=== PATIENT | female | born 1965 | race Caucasian/White ===

== ENCOUNTER 2019-01-28 00:57 | Observation (INO) | payer BC ==
[~2019-01-28] VITALS: Ht 180.3 cm; Wt 90.7 kg
[2019-01-28] MEDS ORDERED: SODIUM CHLORIDE 0.9% 1000ML 1,000 ML IV STA (01:28)
[2019-01-28] MEDS ORDERED: MORPHINE SULFATE INJ 4 MG/ML INJ 1ML IV STA (01:28)
[2019-01-28] MEDS ORDERED: ONDANSETRON HCL INJ 2MG/ML 2ML 2 MG/ML VIAL IV STA (01:28)
[2019-01-28] MEDS ORDERED: GLUCAGON FOR INJ 1 MG VIAL IV ONE ×2 (01:30→03:15)
[2019-01-28 01:53] LABS: BASOPHILS # (AUTO) 0.1 (0.0-0.1); BASOPHILS % 0.8 % (0.0-1.0); EOSINOPHILS # (AUTO) 0.4 (0.0-0.4); EOSINOPHILS % 4.8 % (0.0-6.0); HEMATOCRIT 42.5 % (34.2-44.1); HEMOGLOBIN 14.5 g/dL (12.0-16.0); LYMPHOCYTES # (AUTO) 2.3 (1.0-3.2); LYMPHOCYTES % 27.3 % (18.0-39.1); MEAN CORPUSCULAR HEMOGLOBIN 31.5 pg (28-32); MEAN CORPUSCULAR HGB CONC 34.1 g/dL (31-35); MEAN CORPUSCULAR VOLUME 92.2 fL (81-99); MONOCYTES # (AUTO) 0.5 (0.2-0.8); MONOCYTES % 5.9 % (4.4-11.3); NEUTROPHILS # (AUTO) 5.2 (2.1-6.9); NEUTROPHILS % 60.8 % (38.7-80.0); PLATELET COUNT 243 x10e3/uL (140-360); RED BLOOD COUNT 4.61 x10e6/uL (3.6-5.1); RED CELL DISTRIBUTION WIDTH 12.7 % (11.7-14.4)
[2019-01-28 01:56] LABS: CLARITY,URINE CLOUDY (CLEAR); COLOR,URINE YELLOW (YELLOW); KETONES,URINE TRACE (NEGATIVE); LEUKOCYTE ESTERASE ,URINE NEGATIVE (NEGATIVE); NITRITE,URINE NEGATIVE (NEGATIVE); PROTEIN,URINE DIPSTICK 1+ (NEGATIVE)
[2019-01-28 01:57] LABS: BILIRUBIN,URINE 2+ (NEGATIVE); URINE UROBILINOGEN 0.2 mg/dL (0.2 - 1)
[2019-01-28 02:12] LABS: BACTERIA,URINE MODERATE /HPF; EPITHELIAL CELLS,URINE MODERATE /LPF; MUCUS,URINE MODERATE (RARE); RBC,URINE 0-5 /HPF (0-5)
[2019-01-28 02:21] LABS: INR 0.93; PARTIAL THROMBOPLASTIN TIME 30.1 seconds (23.8-35.5)
--- NOTE | 2019-01-28 02:24 | Diagnostic Imaging Report ---
EXAMINATION: CT scan of the chest without contrast. TECHNIQUE: Helical CT images of the chest were performed from the lung apices to the level of the adrenal glands. No intravenous contrast was administered Coronal and sagittal reformatted images were obtained.Dose modulation, iterative reconstruction, and/or weight based adjustment of the mA/kV was utilized to reduce the radiation dose to as low as reasonably achievable. COMPARISON: None. CLINICAL HISTORY:Chest pain, esophageal foreign body. DISCUSSION: ABSENCE OF INTRAVENOUS CONTRAST DECREASES SENSITIVITY FOR DETECTION OF FOCAL LESIONS AND VASCULAR PATHOLOGY. LINES/TUBES: None. LUNGS AND AIRWAYS: The lungs are clear. No pulmonary nodules, masses or consolidation. The airways are normal, without endobronchial lesions. PLEURA: No pneumothorax or pleural effusions. HEART AND MEDIASTINUM: The thyroid gland is normal. The heart and pericardium are within normal limits. Esophagus is partially filled with fluid and dilated. At the gastroesophageal junction soft tissue density approximately 1.6 cm visualized. LYMPH NODES: There is no mediastinal, hilar or axillary lymphadenopathy. ABDOMEN: Limited contrast-enhanced views of the upper abdomen show no abnormality within the visualized liver, spleen, pancreas, or kidneys. The adrenal glands are normal. BONES AND SOFT TISSUES: No acute bony abnormalities. IMPRESSION: Dilated partially fluid-filled esophagus with foreign body/obstructing lesion at the gastroesophageal junction Signed by: Dr. Zay Gray M.D. on 01/28/2019 2:20 AM
[2019-01-28 02:31] LABS: ALANINE AMINOTRANSFERASE 15 IU/L (0-55); ALBUMIN 4.3 g/dL (3.5-5.0); ALBUMIN/GLOBULIN RATIO 1.2 (0.8-2.0); ALKALINE PHOSPHATASE 87 IU/L (40-150); ANION GAP 15.9 mmol/L (8-16); BLOOD UREA NITROGEN 12 mg/dL (7-26); BUN/CREATININE RATIO 18 (6-25); CARBON DIOXIDE 27 mmol/L (22-29); CHLORIDE 102 mmol/L (98-107); CREATINE KINASE 109 IU/L (29-168); CREATININE, SERUM 0.67 mg/dL (0.57-1.11); EST GLOMERULAR FILTRATION RATE > 60 ML/MIN (60-); GLUCOSE 98 mg/dL (74-118); LIPASE 23 U/L (8-78); MAGNESIUM 2.3 MG/DL (1.3-2.1); SODIUM 142 mmol/L (136-145)
[2019-01-28 02:33] LABS: POTASSIUM 2.9 mmol/L (3.5-5.1)
--- NOTE | 2019-01-28 02:34 | NUR ---
AND RN NOTIFIED OF CRITICAL LAB VALUE. POTASSIUM 2.9.
[2019-01-28] MEDS ORDERED: SODIUM CHLORIDE 0.9% 1000ML 1,000 ML IV SCH (03:00)
[2019-01-28] MEDS ORDERED: PANTOPRAZOLE 40 MG 10ML VIAL IV STA (03:46)
--- OUTSIDE RECORDS SUMMARY | 2019-01-28 03:55 | XMS REPORT ---
Author [facility] Address Unknown Phone Unavailable Care Team Providers Care Car Pilot Name Role Phone Esthela RIVERA Unavailable Unavailable Problems This patient has no known problems. Allergies, Adverse Reactions, Alerts Allergy Name Allergy Type Status Severity Reaction(s) Onset Date Inactive Date Treating Clinician Comments No Known Drug Intolerances DA Active U 2005-05-14 00:00:00 No Known Contrast Allergies DA Active U 2005-05-14 00:00:00 No Known Drug Allergies DA Active U 2005-05-14 00:00:00 No Known Food Allergies DA Active U 2005-05-14 00:00:00 No Known Other Allergies DA Active U 2005-05-14 00:00:00 Medications This patient has no known medications. Results Test Description Test Time Test Comments Text Results Atomic Results Result Comments CT CHEST WO 2019-01-28 02:17:00 [facility] [address] [place] [address] Patient Name: SAROJ WRIGHT MR #: [id number] : 1965 Age/Sex: 53/F Req #: [id number] Adm Physician: Ordered by: HERMELINDO RIVERA MD Report #: [id number] Location: ER Room/Bed: Procedure: [id number] CT/CT CHEST WO Exam Date: 01/28/19 Exam Time: 0150 REPORT STATUS: Signed EXAMINATION: CT scan of the chest without contrast. TECHNIQUE: Helical CT images of the chest were performed from the lung apices to the level of the adrenal glands. No intravenous contrast was administered Coronal and sagittal reformatted images were obtained.Dose modulation, iterative reconstruction, and/or weight based adjustment of the mA/kV was utilized to reduce the radiation dose to as low as reasonably achievable. COMPARISON: None. CLINICAL HISTORY:Chest pain, esophageal foreign body. DISCUSSION: ABSENCE OF INTRAVENOUS CONTRAST DECREASES SENSITIVITY FOR DETECTION OF FOCAL LESIONS AND VASCULAR PATHOLOGY. LINES/TUBES: None. LUNGS AND AIRWAYS: The lungs are clear. No pulmonary nodules, masses or consolidation. The airways are normal, without endobronchial lesions. PLEURA: No pneumothorax or pleural effusions. HEART AND MEDIASTINUM: The thyroid gland is normal. The heart and pericardium are within normal limits. Esophagus is partially filled with fluid and dilated. At the gastroesophageal junction soft tissue density approximately 1.6 cm visualized. LYMPH NODES: There is no mediastinal, hilar or axillary lymphadenopathy. ABDOMEN: Limited contrast-enhanced views of the upper abdomen show no abnormality within the visualized liver, spleen, pancreas, or kidneys. The adrenal glands are normal. BONES AND SOFT TISSUES: No acute bony abnormalities. IMPRESSION: Dilated partially fluid-filled esophagus with foreign body/obstructing lesion at the gastroesophageal junction Signed by: Dr. Jared Pardo M.D. on 01/28/2019 2:20 AM Dictated By: JARED PARDO MD 9 Transcribed By: NALLELY on 01/28/19219 COPY TO: HERMELINDO RIVERA MD
--- OUTSIDE RECORDS SUMMARY | 2019-01-28 03:55 | XMS REPORT | Encounter Summary ---
Author Organization Unknown Address [address] [place] [address] Phone [phone] Care Team Providers Care Pellet Post Inspector Name Role Phone Dr. Edilson Chacko 3 [phone] Reason for Visit sinus symptoms; cough / congestion Instructions 1. Acute bronchitis albuterol sulfate 2.5 mg/3 mL (0.083 %) solution for nebulization Cheratussin AC 10 mg-100 mg/5 mL oral liquid Levaquin 500 mg tablet Depo-Medrol 80 mg/mL suspension for injection ceftriaxone 1 gram solution for injection ProAir HFA 90 mcg/actuation aerosol inhaler 2. Immunization 3. Screening for malignant neoplasm of colon fecal occult blood, stool 4. Screening for malignant neoplasm of breast MAMMO, screening, digital, bilateral - Please schedule & contact our patient. thank you. 5. Screening for malignant neoplasm of cervix gynecology referral - please schedule & contact our patient. Thank you. 6. Body mass index 25-29 - overweight learning about healthy weight Discussion Note: None recorded. Plan of Care Reminders Provider Appointments None recorded. Lab Fecal Occult Blood, Stool 09/30/2018 [facility] Laboratory Referral Gynecology Referral 09/30/2018 Luzma Pugh MD Procedures None recorded. Surgeries None recorded. Imaging MAMMO, Screening, Digital, Bilateral 09/30/2018 [facility] Medications Name Start Date ceftriaxone 1 gram solution for injection Take 1 g by injection route. Cheratussin AC 10 mg-100 mg/5 mL oral liquid Take 10 mL every 8 hours by oral route as needed for 5 days. Levaquin 500 mg tablet Take 1 tablet every 24 hours by oral route as directed for 10 days. ProAir HFA 90 mcg/actuation aerosol inhaler Inhale 2 puffs every 6-8 hours by inhalation route as needed for 10 days. Medications Administered Name Date ceftriaxone 1 gram solution for injection Take 1 g by injection route. [id number]:25:00 Vitals Height Weight BMI Blood Pressure 5 ft 10.9 in 203 lbs 28.4 kg/m2 116/70 mm[Hg] Lab Results None recorded. Allergies Code Code System Name Reaction Severity Status Onset NKDA Problems No Known Problems Procedures Date Name Performed by 09/30/2018 MAMMO, Screening, Digital, Bilateral [facility] [address] [place] [address] (Work Place) Vaccine List Vaccine Type influenza, unspecified formulation 07/11/2017 06/10/2018 Social History Smoking Status Never Smoker Past Encounters 09/30/2018 Acute Bronchitis; Immunization; Screening for Malignant Neoplasm of Colon; Screening for Malignant Neoplasm of Breast; Screening for Malignant Neoplasm of Cervix; Body Mass Index 25-29 - Overweight Edilson Dougherty MD: [address] [place] [address], Ph. History of Present Illness Note:Pt is complaining of runny nose,nasal congestion, productive cough, sinus pressure, sob, sore throat and fever not quantified since 2 months ago. Denies wheezing or chest pain. Review of Systems:ROS as noted in the HPI Review of Systems None recorded. Physical Exam General Adult Exam (male) Reported By: Patient Constitutional: General Appearance: healthy-appearing, overweight. Level of Distress: mild distress. Ambulation: ambulating normally Psychiatric: Insight: good judgement. Mental Status: active and alert, normal mood, normal affect. Orientation: to time, to place, to person. Memory: recent memory normal, remote memory normal Eyes: Lids and Conjunctivae: non-injected, no discharge. EOM: EOMI ENMT: Ears: TMs clear. Nose: nares non-patent, sinus tenderness, nasal discharge, post nasal drip. Lips, Teeth, and Gums: no mouth or lip ulcers. Oropharynx: moist mucous membranes, no exudates, tonsils not enlarged, erythema Neck: Neck: supple, trachea midline. Lymph Nodes: cervical LAD Lungs: Respiratory effort: no dyspnea. Auscultation: expiratory wheezing, rhonchi Cardiovascular: Heart Auscultation: RRR, normal S1, normal S2, no murmurs Musculoskeletal:: Motor Strength and Tone: normal, normal tone. Joints, Bones, and Muscles: normal movement of all extremities. Extremities: no edema Neurologic: Gait and Station: normal gait Skin: Inspection and palpation: no rash, no lesions
[2019-01-28] MEDS ORDERED: MORPHINE SULFATE 2 MG/ML SYR 1ML IV PRN (04:00)
[2019-01-28] MEDS: POTASSIUM CHLORIDE 10MEQ/100ML 100 ML IV SCH ×4 (04:00→07:30)
[2019-01-28] MEDS ORDERED: ONDANSETRON HCL INJ 2MG/ML 2ML 2 MG/ML VIAL IV PRN (04:00)
--- NOTE | 2019-01-28 07:30 | NUR ---
3RD BAG OF POTASSIUM [address] RIVERA, CARDIAC ENZYME DRAWN
[2019-01-28 08:03] LABS: CREATINE KINASE 79 IU/L (29-168)
[2019-01-28] MEDS ORDERED: PANTOPRAZOLE 40 MG 10ML VIAL IV SCH (09:00)
[2019-01-28 09:56] LABS: ANION GAP 12.5 mmol/L (8-16); BLOOD UREA NITROGEN 12 mg/dL (7-26); BUN/CREATININE RATIO 20 (6-25); CARBON DIOXIDE 27 mmol/L (22-29); CHLORIDE 106 mmol/L (98-107); EST GLOMERULAR FILTRATION RATE > 60 ML/MIN (60-); GLUCOSE 89 mg/dL (74-118); POTASSIUM 3.5 mmol/L (3.5-5.1); SODIUM 142 mmol/L (136-145)
--- NOTE | 2019-01-28 12:48 | History and Physical ---
HISTORY OF PRESENT ILLNESS: Ms. Campbell is a 53-year-old female with history of alcohol abuse, but denies any other medical problems, came to the emergency room yesterday because she states on Sunday she was drinking and then she ate a piece of chicken and got it stuck in her after she swallowed it, she had an episode of vomiting a day, the following day at home she was not able to swallow and she kept throwing up and having chest pain, so she decided to come to the emergency room. PAST MEDICAL HISTORY: She denies any medical history. ALLERGIES: NO KNOWN DRUG ALLERGIES. SOCIAL HISTORY: She does not smoke, but she drinks. SURGICAL HISTORY: Never. PHYSICAL EXAMINATION: GENERAL: Today, she is awake and alert. She is still having some chest discomfort. VITAL SIGNS: Temperature is 98.3, blood pressure is 130/66. HEART: Regular rate. LUNGS: Clear to auscultation. ABDOMEN: Soft. LABORATORY DATA: On the blood work; potassium is 2.9, creatinine 0.67, glucose is 98. White count 8.49, hemoglobin 14.5, hematocrit 42.5. Chest CT showed dilated partial fluid filled esophagus with foreign body obstructive lesion at the gastroesophageal junction. ADMITTING DIAGNOSIS: Chest pain secondary to esophageal foreign body, alcohol abuse, and vomiting. PLAN: The plan at present time is to have the patient n.p.o. Continue Protonix 40 mg IV, morphine 2 mg IV for pain, Zofran 4 mg IV for nausea and vomiting. GI consult was requested for endoscopy to remove the foreign body. All this was discussed with the patient. All questions were answered to satisfaction. MD VERO Coyne/CASEY /[id number]
--- NOTE | 2019-01-28 14:23 | Operative Report ---
DATE OF PROCEDURE: 01/28/2019 SURGEON: Tin Conroy MD PROCEDURE: Esophagogastroduodenoscopy with esophageal dilatation and biopsies. INDICATIONS FOR EGD: Foreign body in esophagus. MEDICATIONS: The patient was done under general endotracheal anesthesia, please see anesthesiologist's note. PROCEDURE IN DETAIL: With the patient in left lateral decubitus position and after induction of adequate general endotracheal anesthesia, a flexible fiberoptic Olympus gastroscope was introduced into the esophagus under direct visualization without any difficulty. The distal esophagus was diffusely ulcerated and the food bolus that was lodged in the distal esophagus appears to have spontaneously passed into the stomach. The esophagus was then dilated to size 50-[place] Garcia. The scope was then advanced with ease into the stomach. Mucosa overlying the antrum and the body revealed some diffuse erythema and moderate edema and biopsies were obtained, sent to stain for H pylori. Pylorus was of normal contour and shape, was intubated with ease and the scope was advanced all the way to the second portion of the duodenum. A minute nodule was noted in the proximal second portion and that was biopsied. Mucosa overlying the duodenal bulb grossly appeared to be within normal limits. The scope was then withdrawn back into the stomach and retroflexed. Mucosa overlying the fundus and cardia appeared to be within normal limits. The scope was then straightened out. The stomach was decompressed. Scope was subsequently withdrawn and the patient tolerated procedure well. IMPRESSION: 1. Ulcerated distal esophagus. Food bolus appears to have passed spontaneously. 2. Esophageal stricture at GE junction dilated to size 50-[place] Garcia. 3. Gastritis, biopsied. Biopsies sent to stain for H pylori. 4. Minute nodule, proximal second portion, biopsied. PLAN: Follow up histology. Initiate Protonix 40 mg one p.o. q.a.m. before meals. Tin Conroy MD [facility] /[id number] cc: Junie Jacques MD
[2019-01-28 14:25] VITALS: BP 121/76
[2019-01-28] MEDS ORDERED: ALBUTEROL SULFATE HFA 8GM INHALATION AEROSOL INH ONE (18:36)
[2019-01-28] MEDS ORDERED: SEVOFLURANE INHAL SOLN 250 ML PEN BTL ONE (18:36)
[2019-01-28] MEDS ORDERED: LIDOCAINE HCL 2% LOCAL INJ 5 ML SDV VIAL INJ ONE (18:36)
[2019-01-28] MEDS ORDERED: SUCCINYLCHOLINE 200 MG/10 ML SYR ONE (18:36)
[2019-01-28] MEDS ORDERED: PROPOFOL IV EMULSION 10 MG/ML 20 ML VIAL ONE (18:36)
[2019-01-28] MEDS ORDERED: ROCURONIUM BROMIDE 10 MG/ML 5ML VIAL ONE (18:36)
[2019-01-28] MEDS ORDERED: FENTANYL CITRATE/PF 100MCG/2 ML INJ ONE (19:45)
== END 2019-01-28 14:58 | disposition home or self-care (01) ==
LOC: ER 00:57 → ERHOLD 03:52
PROVIDERS: ADMIT Internal Medicine; ATTEND Internal Medicine
DX: T18.128A Food in esophagus causing other injury, initial encounter (principal); F10.10 Alcohol abuse, uncomplicated; R07.9 Chest pain, unspecified; R07.89 Other chest pain; K22.10 Ulcer of esophagus without bleeding; K22.2 Esophageal obstruction; K29.70 Gastritis, unspecified, without bleeding; K31.9 Disease of stomach and duodenum, unspecified
CPT/HCPCS: 36415; 43239; 43450; 71250; 80048; 80053; 81001; 82550; 82553; 83690; 83735; 84484; 85025; 85610; 85730; 93005; 99284; C9113; G0378; J1610; J2270; J2405; J3480; J7030; J2001

== ENCOUNTER 2019-11-25 16:30 | Emergency (ER) | payer BC ==
[~2019-11-25] VITALS: Ht 180.3 cm; Wt 90.7 kg
[2019-11-25 16:48] LABS: BASOPHILS # (AUTO) 0.1 (0.0-0.1); BASOPHILS % 0.4 % (0.0-1.0); EOSINOPHILS % 0.2 % (0.0-6.0); HEMATOCRIT 40.7 % (34.2-44.1); HEMOGLOBIN 13.9 g/dL (12.0-16.0); LYMPHOCYTES # (AUTO) 4.1 (1.0-3.2); LYMPHOCYTES % 27.7 % (18.0-39.1); MEAN CORPUSCULAR HGB CONC 34.2 g/dL (31-35); MEAN CORPUSCULAR VOLUME 90.6 fL (81-99); MONOCYTES # (AUTO) 1.1 (0.2-0.8); NEUTROPHILS # (AUTO) 9.6 (2.1-6.9); NEUTROPHILS % 64.2 % (38.7-80.0); PLATELET COUNT 316 x10e3/uL (140-360); RED BLOOD COUNT 4.49 x10e6/uL (3.6-5.1); RED CELL DISTRIBUTION WIDTH 12.8 % (11.7-14.4)
[2019-11-25] MEDS ORDERED: SODIUM CHLORIDE 0.9% 1000ML 2,000 ML ONE (16:55)
[2019-11-25 16:58] LABS: INR 0.85; PROTHROMBIN TIME 12.1 seconds (11.9-14.5)
[2019-11-25 17:08] LABS: ALANINE AMINOTRANSFERASE 27 IU/L (0-55); ALBUMIN 4.2 g/dL (3.5-5.0); ALBUMIN/GLOBULIN RATIO 1.4 (0.8-2.0); ALKALINE PHOSPHATASE 70 IU/L (40-150); ANION GAP 13.8 mmol/L (8-16); BLOOD UREA NITROGEN 13 mg/dL (7-26); BUN/CREATININE RATIO 15 (6-25); CALCIUM 9.3 mg/dL (8.4-10.2); CARBON DIOXIDE 25 mmol/L (22-29); CHLORIDE 99 mmol/L (98-107); CREATINE KINASE 151 IU/L (29-168); CREATININE, SERUM 0.86 mg/dL (0.57-1.11); EST GLOMERULAR FILTRATION RATE > 60 ML/MIN (60-); GLUCOSE 131 mg/dL (74-118); SODIUM 135 mmol/L (136-145)
[2019-11-25 17:09] LABS: POTASSIUM 2.8 mmol/L (3.5-5.1)
[2019-11-25 17:11] LABS: AMPHETAMINES SCREEN,URINE NEGATIVE (NEGATIVE); BENZODIAZEPINES SCREEN,URINE NEGATIVE (NEGATIVE); PHENCYCLIDINE SCREEN,URINE NEGATIVE (NEGATIVE)
[2019-11-25] MEDS ORDERED: SODIUM CHLORIDE 0.9% 1000ML 2,000 ML IV SCH (17:15)
[2019-11-25] MEDS ORDERED: POTASSIUM CHLORIDE 20 MEQ TAB CR PO STA (17:17)
[2019-11-25] MEDS ORDERED: LORAZEPAM INJ 2 MG/ML VIAL ONE (18:00)
[2019-11-25] MEDS ORDERED: LORAZEPAM INJ 2 MG/ML VIAL IV ONE ×2 (18:00→18:30)
--- NOTE | 2019-11-25 19:05 | Diagnostic Imaging Report ---
EXAM: CHEST SINGLE (PORTABLE) DATE: 11/25/2019 4:36 PM INDICATION: ^cp;drug abuse ^[id number] ^1700 COMPARISON: Chest CT, 01/28/2019 FINDINGS: Lines and tubes: None Heart size normal. No focal pulmonary opacity, pleural effusion or pneumothorax. Upper abdomen unremarkable. No acute bony abnormality. IMPRESSION: No evidence for acute disease. Signed by: Dr. Twan Garcia M.D. on 11/25/2019 7:02 PM
[2019-11-25 23:37] VITALS: BP 137/91
== END 2019-11-26 00:17 | disposition home or self-care (01) ==
LOC: ER 16:30
DX: F14.129 Cocaine abuse with intoxication, unspecified (principal); F10.129 Alcohol abuse with intoxication, unspecified; F12.129 Cannabis abuse with intoxication, unspecified; F41.9 Anxiety disorder, unspecified; F17.210 Nicotine dependence, cigarettes, uncomplicated
CPT/HCPCS: 36415; 71045; 80053; 80307; 80320; 82550; 82553; 84484; 85025; 85610; 85730; 93005; 99284; J2060; J7030